=== PATIENT | male | born 1970 | race Caucasian/White ===

== ENCOUNTER 2018-09-13 17:01 | Emergency (ER) | payer OTHER ==
[~2018-09-13] VITALS: Ht 175.3 cm; Wt 104.5 kg
[2018-09-13 17:09] VITALS: BP 142/98
[2018-09-13] MEDS ORDERED: HYDR-4353 PO (17:53)
[2018-09-13] MEDS ORDERED: PENI250T2 PO (17:53)
== END 2018-09-13 18:04 | disposition home or self-care (01) ==
LOC: ER 17:02
DX: K08.89 Other specified disorders of teeth and supporting structures (principal)
CPT/HCPCS: 99283